=== PATIENT | female | born 1965 | race Caucasian/White ===

== ENCOUNTER → 2018-12-10 13:02 | Outpatient (CLI) | payer OTHER, SELFPAY ==
--- NOTE | 2018-12-10 | DI.US.S_ITS ---
PROCEDURE: US PELVIC COMPLETE INDICATIONS: PELVIC PAIN TECHNIQUE: Real-time scanning was performed of the pelvic organs, with image documentation. Additional endovaginal scanning was necessary due to incomplete visualization of the adnexal and endometrial structures by transabdominal scanning. COMPARISON: None. FINDINGS: Transabdominal scanning: Limited scanning through the kidneys shows no hydronephrosis. No pathologic free abdominal or pelvic fluid. Endovaginal scanning: Uterus: Uterus is normal in size at 8 x 5.3 x 5.6 cm. The endometrial stripe is not seen, secondary to fibroids. The fibroids measure as follows: Mid anterior uterus, intramural versus submucosal, 2.8 x 2.7 x 3.3 cm Mid posterior uterus, subserosal, 1.9 x 1.4 x 1.8 cm Ovaries: The ovaries are overall not well-seen The right ovary measures 2.2 x 0.9 x 1.2 cm. The left ovary measures 2 x 1.3 x 1.1 cm. The ovaries have a normal sonographic appearance. No adnexal masses are seen. IMPRESSION: Uterine fibroids are seen. Dictated by: Ad Molina M.D. on 12/10/2018 at 13:44 Approved by: Ad Molina M.D. on 12/10/2018 at 13:46
== END ==
PROVIDERS: Visit Provider Physician Assistant Medical
DX: R10.2 Pelvic and perineal pain (principal); D25.2 Subserosal leiomyoma of uterus
CPT/HCPCS: 76830; 76856

== ENCOUNTER → 2019-05-04 09:16 | Outpatient (CLI) | payer OTHER, SELFPAY ==
[2019-05-06 17:03] LABS: Fecal Immunochemical Test NOT DETECTED (NOT DETECTED)
== END ==
PROVIDERS: Visit Provider Nurse Practitioner Family
DX: Z12.11 Encounter for screening for malignant neoplasm of colon (principal)
CPT/HCPCS: 82274

== ENCOUNTER 2023-01-28 11:24 | Emergency (ER) | payer OTHER, SELFPAY ==
[2023-01-28] VITALS (7 sets, daily range): BP systolic 115–157; BP diastolic 56–99; PULSE 67–87; RESP 12–19; TEMP 35.9; O2SAT 97–100; BMI 25.7
[2023-01-28 12:22] LABS: Bacteria Urine None Seen; Culture Indicated Urine Cult Not Indicated; RBC Urine None Seen (0-5/HPF); Urine Comments Microscopic Normal; WBC Urine None Seen (0-5/HPF)
[2023-01-28 13:33] LABS: Add Manual Diff / Slide Review NO; Basophils Absolute Auto 0 /uL (0-100); Basophils Percent Auto 0.3 % (0-2); Eosinophils Absolute Auto 100 /uL (0-450); Eosinophils Percent Auto 1.3 % (2-4); Hematocrit 42.7 % (36-46); Hemoglobin 14.7 g/dL (12.0-16.0); Lymphocytes Absolute Auto 1400 /uL (1100-4500); Lymphocytes Percent Auto 16.2 % (25-40); Mean Corpuscular HGB Conc 34.5 % (30-36); Mean Corpuscular Hemoglobin 30.7 PG (26-34); Mean Corpuscular Volume 88.9 fL (80-100); Monocytes Absolute Auto 500 /uL (0-900); Monocytes Percent Auto 5.4 % (3-14); Neutrophils Absolute Auto 6700 /uL (1500-7000); Neutrophils Percent Auto 76.8 % (50-75); Platelet Count 257 X10^3/uL (150-400); Red Cell Distribution Width 13.2 % (11.6-14.8); White Blood Cell Count 8.7 X10^3/uL (4.5-11.0)
[2023-01-28 13:41] LABS: Alanine Aminotransferase 22 IU/L (<35); Albumin 4.6 g/dL (3.5-5.0); Albumin Globulin Ratio 1.7 (1.0-2.8); Alkaline Phosphatase 90 U/L (38-126); Aspartate Aminotransferase 24 IU/L (14-36); BUN Creatinine Ratio 14.6 (6-22); Bilirubin Total 0.5 mg/dL (0.2-1.3); Blood Urea Nitrogen 12 mg/dL (7-17); Calcium 9.2 mg/dL (8.4-10.2); Carbon Dioxide 21 mmol/L (22-32); Chloride 103 mmol/L (98-107); Estimated Glomerular Filt Rate > 60 mL/min (>60); Globulin 2.7 g/dL (1.7-4.1); Glucose 117 mg/dL (70-100); HEMOLYSIS < 15 (0-50); Lipase 69 U/L (23-300); Potassium 3.7 mmol/L (3.4-5.1); Sodium 135 mmol/L (137-145); Total Protein 7.3 g/dL (6.3-8.2)
--- NOTE | 2023-01-28 13:56 | DI.CT.S_ITS ---
PROCEDURE: CT ABDOMEN PELVIS W CON INDICATIONS: RLQ, R flank pain TECHNIQUE: After the administration of IV contrast, axial sections were acquired from the lung bases to the pubic symphysis. Coronal and sagittal reformats were performed. For radiation dose reduction, the following was used: automated exposure control, adjustment of mA and/or kV according to patient size. COMPARISON: None. FINDINGS: Image quality: Excellent. Lung bases: Unremarkable. Heart: No significant findings. ABDOMEN: Liver: Liver measures 18.6 cm with steatosis. Gallbladder: Unremarkable. Biliary ducts: Unremarkable. Pancreas: Unremarkable. Spleen: Unremarkable. Adrenal Glands: Unremarkable. Kidneys and Ureters: Low-attenuation focus is present within the left kidney likely simple cyst. Punctate right renal calculus is present. There is mild hydronephrosis and hydroureter. 2 mm calcification is noted at the right ureterovesicular junction. Stomach and Bowel: Stomach, small bowel loops, and colon are unremarkable. Peritoneum: No abnormal intraperitoneal fluid. No free air. Ventral Wall: No hernia. Abdominal Nodes: No retroperitoneal or mesenteric adenopathy by size criteria. Vessels: Aorta and inferior vena cava are normal in size. PELVIS: Pelvic Organs: Unremarkable. Bladder: Unremarkable. Pelvic Nodes: No enlarged lymph nodes. Miscellaneous: No inguinal hernias are seen. Bones: Unremarkable. IMPRESSION: Mild right hydronephrosis and hydroureter with calcification measuring 2 mm at the right ureterovesicular junction. Dictated by: Niki Hirsch M.D. on 01/28/2023 at 15:32 Approved by: Niki Hirsch M.D. on 01/28/2023 at 15:33
[2023-01-28] MEDS: ONDANSETRON 4 MG/2 ML INJ IV (13:57)
[2023-01-28] MEDS: SODIUM CHLORIDE 0.9% 1,000 ML 1000 ML IV (13:57)
[2023-01-28] MEDS: KETOROLAC 30 MG/ML VIAL 15 MG IV (13:57)
[2023-01-28] MEDS: MORPHINE 4 MG/ML INJ IV (15:02)
--- NOTE | 2023-01-28 16:17 | ED_ITS ---
HPI - Abdominal Pain <Refugio Rowe PA-C - Last Filed: 01/28/23 16:25> General Chief Complaint: Abdominal Pain Stated Complaint: pain on RT side going to back T-1 Time Seen by Provider: 01/28/23 13:09 Mode of arrival: Ambulatory History of Present Illness HPI narrative: 57-year-old female with past medical history musculoskeletal back pain, arthritis presents to the ED with 1 day of right-sided abdominal pain wrapping around to the back. Patient states the pain acutely started last night, awoke her from sleep. Patient states that she felt somewhat better, went to work this morning, however after some time the pain recurred with much greater severity. Patient endorses 10/10 pain in the ED, along with nausea. Patient denies fever, endorses chills. Patient denies sore throat, rhinorrhea, cough, chest pain, shortness of breath, vomiting, dysuria, lightheadedness, dizziness, syncope. Patient denies prior history of kidney stones. Related Data Home Medications Medication Instructions Recorded Confirmed ibuprofen 800 mg tablet 800 mg PO TID PRN ##0 04/21/19 04/21/19 Previous Rx's Medication Instructions Recorded ondansetron 4 mg disintegrating 4 mg PO Q8H PRN nausea and 01/28/23 tablet vomiting #14 tabs tamsulosin 0.4 mg capsule 0.4 mg PO BEDTIME #14 caps 01/28/23 tramadol 50 mg tablet 50 mg PO Q6H PRN pain 3 days #12 01/28/23 tabs Allergies Allergy/AdvReac Type Severity Reaction Status Date / Time Sulfa (Sulfonamide Allergy Intermediate emesis Verified 01/28/23 11:53 Antibiotics) Review of Systems <Refugio Rowe PA-C - Last Filed: 01/28/23 16:25> Review of Systems ROS Unobtainable: All systems reviewed & are unremarkable except as noted in HPI and below Constitutional Constitutional: Reports chills, Denies fatigue, Denies fever(s), Denies frequent falls, Denies lethargy and Denies weakness Eyes Eyes: Denies change in vision, Denies eye discharge, Denies irritation and Denies loss of vision ENT Ears, Nose, Mouth, and Throat: Denies change in voice, Denies dizziness, Denies neck pain, Denies sore throat and Denies throat swelling Cardiovascular Cardiovascular: Denies chest pain, Denies irregular heart rhythm, Denies lightheadedness, Denies palpitations, Denies dyspnea, Denies dyspnea on exertion and Denies orthopnea Respiratory Respiratory: Denies cough, Denies dyspnea, Denies dyspnea on exertion and Denies wheezing Gastrointestinal Gastrointestinal: Reports abdominal pain, Denies change in bowel habits, Denies diarrhea, Reports nausea and Denies vomiting Genitourinary Genitourinary: Denies hematuria, Denies flank pain, Denies urinary incontinence and Denies urinary urgency Musculoskeletal Musculoskeletal: Denies back pain, Denies muscle weakness, Denies neck pain, Denies numbness and Denies tingling Integumentary/Breasts Skin/Breast: Denies pruritus, Denies erythema, Denies rash and Denies wounds Neurologic Neurologic: Denies behavioral changes, Denies confusion, Denies dizziness, Denies frequent falls, Denies loss of vision, Denies numbness, Denies tingling and Denies weakness Psychiatric Psychiatric: Denies anxiety, Denies behavioral changes, Denies confusion, Denies depression, Denies homicidal ideation and Denies suicidal ideation Endocrine Endocrine: Denies fatigue, Denies flushing and Denies palpitations Hematologic/Lymphatic Hematologic/Lymphatic: Denies easy bruising Allergic/Immunologic Allergic/Immunologic: Denies urticaria, Denies throat swelling and Denies wheezing Patient History <Refugio Rowe PA-C - Last Filed: 01/28/23 16:25> Medical History Chicken pox (~1970) Fibroids (~2019) Heavy menstrual period (~2018) Irregular menstrual cycle (~2016) Shoulder pain (~2019) Social History Smoking Status: Never smoker second hand exposure: No alcohol intake: current (mixed drinks or glass of wine 1-2x/week) substance use type: does not use Smoking Status: Never smoker alcohol intake frequency: a few times a month Substance Use Type: does not use Exam <Refugio Rowe PA-C - Last Filed: 01/28/23 16:25> Narrative Exam Narrative: General:?cooperative, healthy appearing and comfortable HENPR Head:?normal to inspection Ears:?hearing grossly normal bilaterally Nose:?external nose normal Face and sinus:?normal facial exam and sinuses nontender Mouth:?oral mucosae normal Throat:?posterior oropharynx normal Eyes General:?appearance normal, both eyes and all related structures Neck Neck:?normal visual inspection and no lymphadenopathy noted Resp Effort & Inspection:?normal respiratory effort Auscultation:?clear to auscultation bilaterally Cardio Rate:?regular rate Rhythm:?regular rhythm GI Abdomen is soft, nondistended, nontender to palpation. There is no CVA tenderness. Neuro General:?patient alert, patient awake and patient oriented x3 Initial Vital Signs Initial Vital Signs: Vital Signs Temperature 96.7 F L 01/28/23 11:48 Pulse Rate 67 01/28/23 11:48 Respiratory Rate 16 01/28/23 11:48 Blood Pressure 157/69 H 01/28/23 11:48 Pulse Oximetry 100 01/28/23 11:48 Oxygen Delivery Method Room Air 01/28/23 11:48 <Suzanne Fierro DO - Last Filed: 01/28/23 18:37> Initial Vital Signs Initial Vital Signs: Vital Signs Temperature 96.7 F L 01/28/23 11:48 Pulse Rate 67 01/28/23 11:48 Respiratory Rate 16 01/28/23 11:48 Blood Pressure 157/69 H 01/28/23 11:48 Pulse Oximetry 100 01/28/23 11:48 Oxygen Delivery Method Room Air 01/28/23 11:48 Course <Refugio Rowe PA-C - Last Filed: 01/28/23 16:25> Orders Ordered: ED Orders 01/28/23 12:09 Urine Microscopic Stat 01/28/23 13:02 Complete Blood Count AUTO DIFF Stat Comprehensive Metabolic Panel Stat Lipase Stat 01/28/23 13:56 CT abdomen pelvis w con Stat Discontinued Medications Sodium Chloride (Normal Saline 0.9%) 1,000 mls @ 1,000 mls/hr IV BOLUS ONE Stop: 01/28/23 14:48 Last Infusion: 01/28/23 16:00 Dose: 0 mls/hr Documented By: Admin: 01/28/23 13:57 Dose: 1,000 mls/hr Documented By: BS Ketorolac Tromethamine (Ketorolac 30 Mg/Ml Vial) 15 mg IV NOW ONE Stop: 01/28/23 13:51 Last Admin: 01/28/23 13:57 Dose: 15 mg Documented By: BS Morphine Sulfate (Morphine 4 Mg/Ml Inj) 4 mg IV NOW ONE Stop: 01/28/23 13:50 Last Admin: 01/28/23 15:02 Dose: 4 mg Documented By: AT Ondansetron HCl (Ondansetron 4 Mg Odt) 4 mg PO NOW PRN PRN Reason: Nausea And Vomiting Ondansetron HCl (Ondansetron 4 Mg/2 Ml Inj) 4 mg IV NOW PRN PRN Reason: Nausea And Vomiting Last Admin: 01/28/23 13:57 Dose: 4 mg Documented By: BS Vital Signs Vital signs: Vital Signs - 8 hr 01/28/23 11:48 01/28/23 14:51 01/28/23 14:52 Temperature 96.7 F L Pulse Rate 67 82 78 Respiratory Rate 16 18 15 Blood Pressure 157/69 H Pulse Oximetry 100 99 99 Oxygen Delivery Method Room Air 01/28/23 14:52 01/28/23 15:00 01/28/23 15:00 Temperature Pulse Rate 75 Respiratory Rate 12 Blood Pressure 133/61 135/65 Pulse Oximetry 100 Oxygen Delivery Method Room Air 01/28/23 15:30 01/28/23 15:30 01/28/23 16:00 Temperature Pulse Rate 77 84 Respiratory Rate 19 Blood Pressure 121/56 L Pulse Oximetry 97 98 Oxygen Delivery Method Room Air 01/28/23 16:01 01/28/23 16:01 Temperature Pulse Rate 87 Respiratory Rate 16 Blood Pressure 115/99 H Pulse Oximetry 98 Oxygen Delivery Method Room Air <Suzanne Fierro, - Last Filed: 01/28/23 18:37> Orders Ordered: ED Orders 01/28/23 12:09 Urine Microscopic Stat 01/28/23 13:02 Complete Blood Count AUTO DIFF Stat Comprehensive Metabolic Panel Stat Lipase Stat 01/28/23 13:56 CT abdomen pelvis w con Stat Discontinued Medications Sodium Chloride (Normal Saline 0.9%) 1,000 mls @ 1,000 mls/hr IV BOLUS ONE Stop: 01/28/23 14:48 Last Infusion: 01/28/23 16:00 Dose: 0 mls/hr Documented By: Admin: 01/28/23 13:57 Dose: 1,000 mls/hr Documented By: BS Ketorolac Tromethamine (Ketorolac 30 Mg/Ml Vial) 15 mg IV NOW ONE Stop: 01/28/23 13:51 Last Admin: 01/28/23 13:57 Dose: 15 mg Documented By: BS Morphine Sulfate (Morphine 4 Mg/Ml Inj) 4 mg IV NOW ONE Stop: 01/28/23 13:50 Last Admin: 01/28/23 15:02 Dose: 4 mg Documented By: AT Ondansetron HCl (Ondansetron 4 Mg Odt) 4 mg PO NOW PRN PRN Reason: Nausea And Vomiting Ondansetron HCl (Ondansetron 4 Mg/2 Ml Inj) 4 mg IV NOW PRN PRN Reason: Nausea And Vomiting Last Admin: 01/28/23 13:57 Dose: 4 mg Documented By: BS Vital Signs Vital signs: Vital Signs - 8 hr 01/28/23 11:48 01/28/23 14:51 01/28/23 14:52 Temperature 96.7 F L Pulse Rate 67 82 78 Respiratory Rate 16 18 15 Blood Pressure 157/69 H Pulse Oximetry 100 99 99 Oxygen Delivery Method Room Air 01/28/23 14:52 01/28/23 15:00 01/28/23 15:00 Temperature Pulse Rate 75 Respiratory Rate 12 Blood Pressure 133/61 135/65 Pulse Oximetry 100 Oxygen Delivery Method Room Air 01/28/23 15:30 01/28/23 15:30 01/28/23 16:00 Temperature Pulse Rate 77 84 Respiratory Rate 19 Blood Pressure 121/56 L Pulse Oximetry 97 98 Oxygen Delivery Method Room Air 01/28/23 16:01 01/28/23 16:01 Temperature Pulse Rate 87 Respiratory Rate 16 Blood Pressure 115/99 H Pulse Oximetry 98 Oxygen Delivery Method Room Air MDM - Abdominal Pain <Refugio Rowe PA-C - Last Filed: 01/28/23 16:25> Lab Data 01/28/23 13:02 01/28/23 13:02 Labs: Lab Results 01/28/23 01/28/23 01/28/23 Range/Units 12:09 13:02 13:02 WBC 8.7 (4.5-11.0) X10^3/uL RBC 4.80 (4.0-5.2) X10^6/uL Hgb 14.7 (12.0-16.0) g/dL Hct 42.7 (36-46) % MCV 88.9 (80-100) fL MCH 30.7 (26-34) PG MCHC 34.5 (30-36) % RDW 13.2 (11.6-14.8) % Plt Count 257 (150-400) X10^3/uL Neut % (Auto) 76.8 H (50-75) % Lymph % (Auto) 16.2 L (25-40) % Gibson % (Auto) 5.4 (3-14) % Eos % (Auto) 1.3 L (2-4) % Baso % (Auto) 0.3 (0-2) % Neut # (Auto) 6700 (2841-1028) /uL Lymph # (Auto) 1400 (1102-0055) /uL Gibson # (Auto) 500 (0-900) /uL Eos # (Auto) 100 (0-450) /uL Baso # (Auto) 0 (0-100) /uL Sodium 135 L (137-145) mmol/L Potassium 3.7 (3.4-5.1) mmol/L Chloride 103 (98-107) mmol/L Carbon Dioxide 21 L (22-32) mmol/L BUN 12 (7-17) mg/dL Creatinine 0.82 (0.52-1.04) mg/dL Estimated GFR > 60 (>60) mL/min BUN/Creatinine Ratio 14.6 (6-22) Glucose 117 H (70-100) mg/dL Calcium 9.2 (8.4-10.2) mg/dL Total Bilirubin 0.5 (0.2-1.3) mg/dL AST 24 (14-36) IU/L ALT 22 (<35) IU/L Alkaline Phosphatase 90 (38-126) U/L Total Protein 7.3 (6.3-8.2) g/dL Albumin 4.6 (3.5-5.0) g/dL Globulin 2.7 (1.7-4.1) g/dL Albumin/Globulin Ratio 1.7 (1.0-2.8) Lipase 69 (23-300) U/L Urine RBC None seen (0-5/HPF) Urine WBC None seen (0-5/HPF) Urine Bacteria None seen (None) Ur Culture Indicated? Cult not indicated Micro UA Comment Microscopic normal Point of care testing: Urine Dip Bedside Urine Glucose Negative Bedside Urine Bilirubin - Negative Bedside Urine Ketone - Negative Urine Specific Archer 1.03 Bedside Urine Occult Blood +++ Bedside Urine pH 5.5 Bedside Urine Protein - Negative Bedside Urine Urobilinogen - Negative Bedside Urine Nitrite - Negative Bedside Urine Leukocytes - Negative Esterase MDM Narrative Medical decision making narrative: 57-year-old female with past medical history musculoskeletal back pain, arthritis presents to the ED with 1 day of right-sided abdominal pain wrapping around to the back. Concern for nephrolithiasis versus appendicitis versus UTI versus pyelonephritis versus versus musculoskeletal sprain/strain versus other intra-abdominal pathology versus other. Will obtain labs, UA, CT abdomen pelvis. Will give Zofran, ketorolac, IV fluids for symptoms. Will reassess. Patient given morphine for further pain control with good relief. UA shows hematuria but no infection. CT abdomen pelvis shows mild right hydronephrosis and hydroureter with calcification measuring 2 mm at the right UVJ. Discussed findings with patient. Prescribed pain and nausea control, tamsulosin for stone passage. Stones of size 5 mm and less have a very good chance of passing spontaneously. Recommend follow-up with Urology. ED return precautions discussed with patient. Patient verbalized understanding. Medical records reviewed: Yes <Suzanne Fierro, - Last Filed: 01/28/23 18:37> Lab Data Labs: Lab Results 01/28/23 01/28/23 01/28/23 Range/Units 12:09 13:02 13:02 WBC 8.7 (4.5-11.0) X10^3/uL RBC 4.80 (4.0-5.2) X10^6/uL Hgb 14.7 (12.0-16.0) g/dL Hct 42.7 (36-46) % MCV 88.9 (80-100) fL MCH 30.7 (26-34) PG MCHC 34.5 (30-36) % RDW 13.2 (11.6-14.8) % Plt Count 257 (150-400) X10^3/uL Neut % (Auto) 76.8 H (50-75) % Lymph % (Auto) 16.2 L (25-40) % Gibson % (Auto) 5.4 (3-14) % Eos % (Auto) 1.3 L (2-4) % Baso % (Auto) 0.3 (0-2) % Neut # (Auto) 6700 (0125-1390) /uL Lymph # (Auto) 1400 (8660-1056) /uL Gibson # (Auto) 500 (0-900) /uL Eos # (Auto) 100 (0-450) /uL Baso # (Auto) 0 (0-100) /uL Sodium 135 L (137-145) mmol/L Potassium 3.7 (3.4-5.1) mmol/L Chloride 103 (98-107) mmol/L Carbon Dioxide 21 L (22-32) mmol/L BUN 12 (7-17) mg/dL Creatinine 0.82 (0.52-1.04) mg/dL Estimated GFR > 60 (>60) mL/min BUN/Creatinine Ratio 14.6 (6-22) Glucose 117 H (70-100) mg/dL Calcium 9.2 (8.4-10.2) mg/dL Total Bilirubin 0.5 (0.2-1.3) mg/dL AST 24 (14-36) IU/L ALT 22 (<35) IU/L Alkaline Phosphatase 90 (38-126) U/L Total Protein 7.3 (6.3-8.2) g/dL Albumin 4.6 (3.5-5.0) g/dL Globulin 2.7 (1.7-4.1) g/dL Albumin/Globulin Ratio 1.7 (1.0-2.8) Lipase 69 (23-300) U/L Urine RBC None seen (0-5/HPF) Urine WBC None seen (0-5/HPF) Urine Bacteria None seen (None) Ur Culture Indicated? Cult not indicated Micro UA Comment Microscopic normal Point of care testing: Urine Dip Bedside Urine Glucose Negative Bedside Urine Bilirubin - Negative Bedside Urine Ketone - Negative Urine Specific Archer 1.03 Bedside Urine Occult Blood +++ Bedside Urine pH 5.5 Bedside Urine Protein - Negative Bedside Urine Urobilinogen - Negative Bedside Urine Nitrite - Negative Bedside Urine Leukocytes - Negative Esterase Discharge Plan Departure Patient Disposition: Home Clinical Impression: Nephrolithiasis Instructions: Kidney Stones -- Adult Activity Restrictions/Additional Instructions: You were evaluated in the ED today for abdominal pain. Your CT scan shows a 2 mm right-sided kidney stone that is a likely cause of your symptoms today. Most stones 5 mm unless have a very good chance to pass spontaneously without further intervention. You are being prescribed medications to aid passing the stone, control pain and nausea. Please return to the ED if your symptoms are not controlled despite the medications. Please follow-up with [facility] at [phone] for further evaluation and treatment. Prescriptions: New tramadol 50 mg tablet 50 mg PO Q6H PRN (Reason: pain) 3 Days Qty: 12 0RF tamsulosin 0.4 mg capsule 0.4 mg PO BEDTIME Qty: 14 0RF ondansetron 4 mg tablet,disintegrating 4 mg PO Q8H PRN (Reason: nausea and vomiting) Qty: 14 0RF No Action ibuprofen 800 mg tablet 800 mg PO TID PRNQty: 0 Referrals: Miscellaneous,Doctor, MD [Primary Care Provider] - Stand Alone Forms: Patient Portal/API <Suzanne Fierro DO - Last Filed: 01/28/23 18:37> Cosign ED Attending Bebe Attestation: I was immediately available in the department for consultation. Documentation has been reviewed.
== END 2023-01-28 16:18 | disposition home or self-care (01) ==
PROVIDERS: Emergency Medicine; Emergency Provider Student in an Organized Health Care Education/Training Program
DX: N20.0 Calculus of kidney (principal)
CPT/HCPCS: 36415; 74177; 80053; 81003; 81015; 83690; 85025; 96361; 96374; 96375; 99284; J1885; J2270; J2405; Q9967

== ENCOUNTER → 2024-08-14 15:47 | Outpatient (CLI) | payer OTHER, SELFPAY ==
--- NOTE | 2024-08-14 15:51 | DI.US.S_ITS ---
PROCEDURE: US RENAL COMPLETE INDICATIONS: NEPHROLITHIASIS TECHNIQUE: Real-time scanning was performed of the kidneys and bladder, with image documentation. COMPARISON: [facility], CT, CT ABDOMEN PELVIS W CON, 01/28/2023, 14:26. FINDINGS: Kidneys: Kidneys are normal in size. Right kidney measures 9.9 cm long; left kidney measures 9.9 cm long. Right renal cortical thickness is 1.2 cm; left renal cortical thickness is 1.6 cm. Renal cortical echotexture is normal. No hydronephrosis or nephrolithiasis. Incidentally noted 2.0 x 2.3 x 2.1 cm lobulation versus isoechoic mass along the anterior-superior cortex of the left kidney. On the corresponding 01/28/2023 CT abdomen pelvis, there is a contour deformity of the lateral and superior cortices of the left kidney, which would coincide with the finding on today's exam. 4 mm calculus at the mid-anterior pole of the right kidney. Likely 0.8 x 0.8 x 1.0 cm bilobed simple cyst at the mid-lateral pole. Bladder: Pre-void bladder volume is 84 mL. Post-void residual is 10 mL. Pre-void images demonstrate no intraluminal masses or stones. On pre-void images, bilateral ureteral jets are noted with color Doppler interrogation. (Of note, ureteral jets may not be detectable in up to 25% of cases due to insufficient differences in specific gravity between ureteral and bladder urine). Miscellaneous: No free pelvic fluid. Hyperechoic liver parenchyma. IMPRESSION: 1. Nonobstructive right 4 mm calyceal nephrolithiasis. 2. No hydronephrosis. 3. Prominent lobulation versus 2.3 cm mass at the left renal anterior-superior cortex. MRI abdomen pre and post contrast renal mass protocol would be recommended for evaluation. 4. Hepatic steatosis versus underlying hepatocellular disease. Dictated by: Gerard Winter M.D. on 08/15/2024 at 0:21 Approved by: Gerard Winter M.D. on 08/15/2024 at 0:32
== END ==
LOC: US 15:50
PROVIDERS: Referring Provider Nurse Practitioner Adult Health; Visit Provider Nurse Practitioner Adult Health
DX: N20.0 Calculus of kidney (principal)
CPT/HCPCS: 76770

== ENCOUNTER → 2024-11-11 17:02 | Outpatient (CLI) | payer OTHER, SELFPAY ==
--- NOTE | 2024-11-11 17:03 | DI.MRI.S_ITS ---
PROCEDURE: MR ABDOMEN RENAL PROTOCOL INDICATIONS: RENAL MASS TECHNIQUE: Coronal HASTE through abdomen and pelvis; axial 2D FLASH in- and [id number] (with and without fat saturation), and breath-hold T2 FSE from the hepatic dome to the bottom of the kidneys. Coronal HASTE MR urogram of kidneys and bladder. Dynamic coronal VIBE during IV gadolinium administration; postgadolinium axial VIBE or 2D FLASH with fat saturation from the hepatic dome through the kidneys. COMPARISON: Located Within [facility], US, US RENAL COMPLETE, 08/14/2024, 16:02. Located Within [facility], CT, CT ABDOMEN PELVIS W CON, 01/28/2023, 14:26. FINDINGS: Image quality: Diagnostic Lower chest: Unremarkable lung bases Liver: Hepatic steatosis. Gallbladder and biliary system: Under distended, nondilated Pancreas: No ductal dilation Spleen: Nonenlarged Adrenals: No discrete nodules Kidneys: No solid renal mass identified. There are small cysts. No hydronephrosis. Vessels and lymph nodes: No enlarged lymph nodes by size criteria. The main portal vein is patent. No abdominal aortic aneurysm Bowel and peritoneum: No small bowel obstruction. No pathologic ascites. Body wall: Unremarkable Bones: There are degenerative changes. IMPRESSION: No solid renal mass is seen. No hydronephrosis. There are small renal cysts, without complicated lesion identified Other findings above. Dictated by: Derrek Donaldson M.D. on 11/12/2024 at 8:27 Approved by: Derrek Donaldson M.D. on 11/12/2024 at 8:36
== END ==
LOC: MRI 17:03
PROVIDERS: Referring Provider Urology; Visit Provider Urology
DX: N28.89 Other specified disorders of kidney and ureter (principal); K76.0 Fatty (change of) liver, not elsewhere classified; N28.1 Cyst of kidney, acquired
CPT/HCPCS: 74183; A9579

== ENCOUNTER → 2025-09-16 14:06 | Outpatient (CLI) | payer OTHER, SELFPAY ==
--- NOTE | 2025-09-16 14:08 | DI.RAD.S_ITS ---
PROCEDURE: XR KNEE RT 3V INDICATIONS: Right knee pain TECHNIQUE: 3 views of the knee were acquired. COMPARISON: None. FINDINGS: Bones: There are no osseous abnormalities. Joints: Mild patellofemoral and medial tibial femoral degeneration appreciated . Soft tissues: Normal IMPRESSION: Mild degeneration Dictated by: Tono Brenner M.D. on 09/17/2025 at 12:09 Approved by: Tono Brenner M.D. on 09/17/2025 at 12:09
== END ==
PROVIDERS: PCP Nurse Practitioner Family; Referring Provider Nurse Practitioner Family; Visit Provider Nurse Practitioner Family
DX: M17.11 Unilateral primary osteoarthritis, right knee (principal); M25.561 Pain in right knee
CPT/HCPCS: 73562

== ENCOUNTER → 2025-11-05 09:09 | Outpatient (CLI) | payer OTHER, SELFPAY ==
[2025-11-05 09:50] LABS: Add Manual Diff / Slide Review NO; Hematocrit 43.2 % (36-46); Hemoglobin 14.7 g/dL (12.0-16.0); Lymphocytes Absolute Auto 1600 /uL (1100-4500); Mean Corpuscular HGB Conc 34.0 % (30-36); Mean Corpuscular Hemoglobin 30.3 PG (26-34); Mean Corpuscular Volume 89.1 fL (80-100); Platelet Count 245 X10^3/uL (150-400)
[2025-11-05 10:19] LABS: Alanine Aminotransferase 24 IU/L (<35); Albumin 4.5 g/dL (3.5-5.0); Albumin Globulin Ratio 1.8 (1.0-2.8); Alkaline Phosphatase 71 U/L (38-126); Blood Urea Nitrogen 14 mg/dL (7-17); Calcium 9.6 mg/dL (8.4-10.2); Carbon Dioxide 26 mmol/L (22-32); Chloride 106 mmol/L (98-107); Cholesterol 204 mg/dL (140-199); Estimated Glomerular Filt Rate > 60 mL/min (>60); Globulin 2.5 g/dL (1.7-4.1); Glucose 63 mg/dL (70-99); HDL Cholesterol 72 mg/dL (40-60); HEMOLYSIS < 15 (0-50); Potassium 4.6 mmol/L (3.4-5.1); Sodium 140 mmol/L (137-145); Total Protein 7.0 g/dL (6.3-8.2); Triglycerides 142 mg/dL (35-150)
== END ==
PROVIDERS: PCP Nurse Practitioner Family; Referring Provider Nurse Practitioner Family; Visit Provider Nurse Practitioner Family
DX: R29.818 Other symptoms and signs involving the nervous system (principal); R53.83 Other fatigue
CPT/HCPCS: 36415; 80053; 80061; 85025